=== PATIENT | male | born 1960 | race Two or more races ===

== ENCOUNTER 2016-09-08 12:01 | Inpatient (IN) | payer OTHER ==
[2016-09-08 13:02] VITALS: BMI 22.3
--- NOTE | 2016-09-08 16:22 | HP ---
COWS - Scale Resting Pulse: 1= [place] 81-100 Sweatin= Chills/Flushing Restless Observation: 1= Difficult to Sit Still Pupil Size: 1= Pupils >than Normal Bone or Joint Aches: 2= Severe Diffuse Aches Runny Nose/ Eye Tearin= Runny Nose/Eyes GI Upset > 30mins: 1= Stomach Cramp Tremor Observation: 1= Tremor [place], Not Seen Yawning Observation: 0= None Anxiety or Irritability: 2=Irritable/Anxious Goose Flesh Skin: 3=Piloerection COWS Score: 15 Admission ROS [facility] - [facility] Chief Complaint: withdrawal sx Allergies/Adverse Reactions: Allergies Allergy/AdvReac Type Severity Reaction Status Date / Time No Known Allergies Allergy Verified 09/08/16 14:59 History of Present Illness: 56 YEARS OLD MALE WITH LONG HISTORY OF OPIATE NICOTINE DEPENDENCE, DENIES MEDICAL ISSUE DENIES MENTAL ILLNESS, LONGEST SOBRIETY IS 1 YEAR, IS ADMITTED TO DETOX Exam Limitations: No Limitations - Ebola screening Have you traveled outside of the country in the last 21 days: No Have you had contact with anyone from an Ebola affected area: No Have you been sick,other than usual withdrawal symptoms: No Do you have a fever: No - Review of Systems Constitutional: Chills, Changes in sleep, Weight Stable EENT: reports: Dental Problems (UPPER TEETH MISSING - ABLE TO CHEW REGULAR FOOD) Respiratory: reports: SOB with Exertion Cardiac: reports: Chest Pain (CHRONIC CHEST PAIN - RELIEFED - "RELAXATION") GI: reports: Nausea, Poor Fluid Intake, Abdominal cramping : reports: No Symptoms Reported Musculoskeletal: reports: Back Pain Integumentary: reports: No Symptoms Reported Neuro: reports: Tremors Endocrine: reports: No Symptoms Reported Hematology: reports: No Symptoms Reported Psychiatric: reports: Judgement Intact, Mood/Affect Appropiate, Orientated x3 Other Systems: Reviewed and Negative Patient History - Patient Medical History Hx Anemia: No Hx Asthma: No Hx Chronic Obstructive Pulmonary Disease (COPD): Yes Hx Cancer: No Hx Cardiac Disorders: No Hx Congestive Heart Failure: No Hx Hypertension: No Hx Hypercholesterolemia: No Hx Pacemaker: No HX Cerebrovascular Accident: No Hx Seizures: Yes (1976 HEAD TRAUMA) Hx Dementia: No Hx Diabetes: No Hx Gastrointestinal Disorders: No Hx Liver Disease: No Hx Genitourinary Disorders: No Hx Sexually Transmitted Disorders: No Hx Renal Disease (ESRD): No Hx Thyroid Disease: No Hx Human Immunodeficiency Virus (HIV): No (negative ) Hx Hepatitis C: No Hx Depression: No Hx Suicide Attempt: No Hx Bipolar Disorder: No Hx Schizophrenia: No - Patient Surgical History Past Surgical History: Yes Hx Neurologic Surgery: No Hx Cataract Extraction: No Hx Cardiac Surgery: No Hx Lung Surgery: No Hx Breast Surgery: No Hx Breast Biopsy: No Hx Abdominal Surgery: Yes (UMBILICAL Herniorrhaphy 1977) Hx Appendectomy: No Hx Cholecystectomy: No Hx Genitourinary Surgery: No Hx Orthopedic Surgery: No Other Surgical History: Anesthesia Reaction: No - PPD History Previous Implant?: Yes Documented Results: Negative w/proof Implanted On Prior [facility] Admission?: Yes Date: 08/30/14 Results: 0 mm PPD to be Administered?: Yes - Smoking Cessation Smoking history: Current every day smoker Have you smoked in the past 12 months: Yes Aproximately how many cigarettes per day: 30 Cigars Per Day: 0 Hx Chewing Tobacco Use: No Initiated information on smoking cessation: Yes 'Breaking Loose' booklet given: 09/08/16 - Substance & Tx. History Hx Alcohol Use: No Hx Substance Use: Yes Substance Use Type: Heroin, Opiates Hx Substance Use Treatment: Yes - Substances Abused Heroin Route: Inhalation Frequency: Daily Amount used: 10-15 bags Age of first use: 26 Date of Last Use: 09/08/16 Street methadone Route: Oral Frequency: 1-2 times per week Amount used: 75 mg. Age of first use: 26 Date of Last Use: 09/06/16 Family Disease History - Family Disease History Family History: Denies Admission Physical Exam [facility] - Vital Signs Vital Signs: Vital Signs - 24 hr 09/08/16 12:59 Temperature 97.8 F Pulse Rate 82 Respiratory 18 Rate Blood Pressure 104/69 - Physical General Appearance: Yes: Appropriately Dressed, Mild Distress, Thin, Tremorous, Irritable, Sweating, Anxious HEENTM: Yes: Hearing grossly Normal, Normal ENT Inspection, Normocephalic, Normal Voice Respiratory: Yes: Chest Non-Tender, No Respiratory Distress, No Accessory Muscle Use, Hyperresonant, Inspiration Neck: Yes: Supple, Trachea in good position Breast: Yes: Breasts Symetrical Cardiology: Yes: Regular Rhythm, Regular Rate, S1, S2 Abdominal: Yes: Non Tender, Soft Genitourinary: Yes: Within Normal Limits Back: Yes: Normal Inspection Musculoskeletal: Yes: full range of Motion, Gait Steady, Back pain Extremities: Yes: Normal Inspection, Normal Range of Motion, Non-Tender, Tremors Neurological: Yes: Fully Oriented, Alert, Motor Strength 5/5, Normal Mood/Affect , Normal Response Integumentary: Yes: Normal Color, Warm, Clammy Lymphatic: Yes: Within Normal Limits - Diagnostic (1) Nicotine dependence Current Visit: Yes Status: Acute Qualifiers: Nicotine product type: cigarettes Substance use status: in withdrawal Qualified Code(s): F17.213 - Nicotine dependence, cigarettes, with withdrawal (2) Opioid dependence with withdrawal Current Visit: Yes Status: Acute (3) COPD (chronic obstructive pulmonary disease) Current Visit: Yes Status: Acute Qualifiers: COPD type: emphysema Emphysema type: unilateral Qualified Code(s ): J43.0 - Unilateral pulmonary emphysema [MacLeod's syndrome] Comment: VENTOLIN Cleared for Admission S - Detox or Rehab [facility] Level of Care: Medically Managed Detox Regimen/Protocol: Methadone [facility] Breath Alcohol Content Breath Alcohol Content: 0 Urine Drug Screen - Results Drug Screen Negative: No Urine Drug Screen Results: OPI-Opiates, MTD-Methadone
[2016-09-08] MEDS ORDERED: MENTHOL/PHENOL 1 EACH UD MM PRN (16:27)
[2016-09-08] MEDS ORDERED: NICOTINE POLACRILEX 2 MG GUM BC PRN (16:27)
[2016-09-08] MEDS ORDERED: guaiFENesin/D-METHORPHAN HB 10 ML UNIT-DOSE CUPS PO PRN (16:27)
[2016-09-08] MEDS ORDERED: diphenhydrAMINE HCL 50 MG CAPSULE PO PRN (16:27)
[2016-09-08] MEDS ORDERED: LOPERAMIDE HCL 2 MG CAPSULE PO PRN (16:27)
[2016-09-08] MEDS ORDERED: P-EPHED 60MG/TRIPROLIDI 2.5MG TABLET PO PRN (16:27)
[2016-09-08] MEDS ORDERED: ACETAMINOPHEN 325 MG TABLET (FP) PO PRN (16:27)
[2016-09-08] MEDS ORDERED: MAGNESIUM HYDROX 2400MG/30ML ORAL SUSPENSION 30 ML CUP PO PRN (16:27)
[2016-09-08] MEDS ORDERED: MAG HYDROX/AL HYDROX/SIMETH 30 ML UNIT-DOSE CUP PO PRN (16:27)
[2016-09-08] MEDS ORDERED: IBUPROFEN 400 MG TABLET (FP) PO PRN (16:27)
[2016-09-08] MEDS ORDERED: MAGNESIUM CITRATE 300 ML BOTTLE PO PRN (16:27)
[2016-09-08] MEDS ORDERED: ALBUTEROL SO4 6.7 GM HFA INHALER IH PRN (16:31)
[2016-09-08] MEDS ORDERED: METHADONE HCL 10 MG TABLET (FOR DETOX USE ONLY) PO ONE ×2 (17:15→23:00)
[2016-09-08] MEDS: diazePAM 5 MG TABLET PO PRN ×2 (17:23→22:42)
[2016-09-08] MEDS: THIAMINE HCL 100 MG TABLET (FP) PO SCH (22:42)
[2016-09-08 23:00] LABS: URINE APPEARANCE CLEAR; URINE BILIRUBIN NEGATIVE (NEGATIVE); URINE BLOOD NEGATIVE (NEGATIVE); URINE COLOR LTYELLOW; URINE GLUCOSE (UA) NEGATIVE (NEGATIVE); URINE KETONE NEGATIVE (NEGATIVE); URINE LEUK ESTERASE NEGATIVE (NEGATIVE); URINE NITRITE NEGATIVE (NEGATIVE); URINE PROTEIN NEGATIVE (NEGATIVE); URINE UROBILINOGEN NEGATIVE E.U./dl (0.2-1.0)
[2016-09-09] MEDS ORDERED: METHADONE HCL 10 MG TABLET (FOR DETOX USE ONLY) PO ONE (10:00)
[2016-09-09] MEDS: NICOTINE 21 MG/24 HOURS TOPICAL PATCH TD SCH (10:22)
[2016-09-09 10:23] LABS: MCH 27.8 pg (25.7-33.7); MCHC 32.1 g/dl (32.0-35.9); MEAN CELL VOLUME 86.6 fl (80-96); MEAN PLT VOLUME 8.8 fl (7.5-11.1); PLATELET COUNT 270 K/MM3 (134-434); RDW 14.1 % (11.9-15.9); WHITE BLOOD COUNT 9.4 K/mm3 (4.0-10.0)
[2016-09-09] MEDS: diazePAM 5 MG TABLET PO PRN ×2 (10:23→23:09)
[2016-09-09] MEDS: PRENATAL VITAMINS W/ FOLIC ACID TABLET (FP) PO SCH (10:23)
[2016-09-09 10:37] LABS: ALBUMIN 3.7 g/dl (3.4-5.0); ALK PHOS 69 U/L (45-117); ANION GAP 8 (8-16); BILIRUBIN,TOTAL 0.3 mg/dL (0.2-1.0); CALCIUM 8.7 mg/dL (8.5-10.1); CO2 27 mmol/L (21-32); GLUCOSE,RANDOM 94 mg/dL (74-106); SGOT/AST 10 U/L (15-37); SGPT/ALT 15 U/L (12-78); TOT PROT 6.7 g/dl (6.4-8.2)
--- NOTE | 2016-09-09 12:00 | PN ---
S COWS - Scale Resting Pulse: 0= [place] 80 or Below Sweatin=Flushed/Facial Moisture Restless Observation: 1= Difficult to Sit Still Pupil Size: 1= Pupils >than Normal Bone or Joint Aches: 2= Severe Diffuse Aches Runny Nose/ Eye Tearin= Nasal Congestion GI Upset > 30mins: 1= Stomach Cramp Tremor Observation of Outstretched Hands: 1= Tremor [place], Not Seen Yawning Observation: 0= None Anxiety or Irritability: 2=Irritable/Anxious Goose Flesh Skin: 0=Smooth Skin COWS Score: 11 S Progress Note (SOAP) Subjective: INTERRUPTED SLEEP, SWEATS , LBP Objective: 09/09/16 11:58 Vital Signs Temperature 99.7 F H 09/09/16 09:59 Pulse Rate 95 H 09/09/16 09:59 Respiratory Rate 16 09/09/16 09:59 Blood Pressure 129/69 09/09/16 09:59 O2 Sat by Pulse Oximetry (%) Laboratory Tests 09/08/16 09/09/16 09/09/16 22:00 06:20 06:20 WBC 9.4 RBC 4.90 Hgb 13.6 D Hct 42.4 MCV 86.6 MCHC 32.1 RDW 14.1 Plt Count 270 MPV 8.8 Sodium 139 Potassium 4.7 Chloride 104 Carbon Dioxide 27 Anion Gap 8 BUN 12 D Creatinine 1.0 D Creat Clearance w eGFR > 60 Random Glucose 94 Calcium 8.7 Total Bilirubin 0.3 D AST 10 L D ALT 15 D Alkaline Phosphatase 69 Total Protein 6.7 Albumin 3.7 Urine Color Ltyellow Urine Appearance Clear Urine pH 6.0 Ur Specific [place] 1.008 Urine Protein Negative Urine Glucose (UA) Negative Urine Ketones Negative Urine Blood Negative Urine Nitrite Negative Urine Bilirubin Negative Urine Urobilinogen Negative Ur Leukocyte Esterase Negative RPR Titer 09/09/16 06:20 WBC RBC Hgb Hct MCV MCHC RDW Plt Count MPV Sodium Potassium Chloride Carbon Dioxide Anion Gap BUN Creatinine Creat Clearance w eGFR Random Glucose Calcium Total Bilirubin AST ALT Alkaline Phosphatase Total Protein Albumin Urine Color Urine Appearance Urine pH Ur Specific [place] Urine Protein Urine Glucose (UA) Urine Ketones Urine Blood Urine Nitrite Urine Bilirubin Urine Urobilinogen Ur Leukocyte Esterase RPR Titer Nonreactive PT AOX3 IN NAD Assessment: 09/09/16 11:59 WITHDRAWL SX;S Plan: CONT. DETOX INCREASE FLUIDS LIDOCAINE PATCH
[2016-09-09] MEDS ORDERED: LIDOCAINE 5% TOPICAL PATCH TP ONE (12:01)
--- NOTE | 2016-09-09 16:12 | EKG ---
Test Reason : Blood Pressure : / mmHG Vent. Rate : 055 BPM Atrial Rate : 055 BPM P-R Int : 118 ms QRS Dur : 090 ms QT Int : 402 ms P-R-T Axes : 043 068 057 degrees QTc Int : 384 ms SINUS BRADYCARDIA OTHERWISE NORMAL ECG NO PREVIOUS ECGS AVAILABLE Confirmed by SIMNOE VILLELA MD ([id number]) on 09/09/2016 4:12:22 PM Referred By: Confirmed By:SIMONE VILLELA MD
[2016-09-09] MEDS: THIAMINE HCL 100 MG TABLET (FP) PO SCH (23:10)
[2016-09-10 09:49] VITALS: BP 117/57; PULSE 93; TEMP 97.7
[2016-09-10] MEDS ORDERED: METHADONE HCL 5 MG TABLET (FOR DETOX USE ONLY) PO ONE (10:00)
[2016-09-10] MEDS: PRENATAL VITAMINS W/ FOLIC ACID TABLET (FP) PO SCH (10:25)
[2016-09-10] MEDS: NICOTINE 21 MG/24 HOURS TOPICAL PATCH TD SCH (10:25)
[2016-09-10] MEDS: diazePAM 5 MG TABLET PO PRN (10:26)
[2016-09-10] MEDS: LIDOCAINE 5% TOPICAL PATCH TP SCH ×2 (10:28→11:45)
--- NOTE | 2016-09-10 11:47 | PN ---
S Progress Note Note: pt was advised not to sign out but pt mind was set to leave refused to explain his reasoning.
--- NOTE | 2016-09-10 11:49 | DS ---
[facility] Detox Discharge Summary Admission Date: 09/08/16 Discharge Date: 09/10/16 (did not want detox) - History Present History: Opioid Dependence - Physical Exam Results Vital Signs: Vital Signs Temperature 97.7 F 09/10/16 09:48 Pulse Rate 93 H 09/10/16 09:48 Respiratory Rate 18 09/10/16 09:48 Blood Pressure 117/57 09/10/16 09:48 O2 Sat by Pulse Oximetry (%) - Medication Discharge Medications: Ambulatory Orders NK [No Known Home Medication] 09/08/16 - Diagnosis (1) COPD (chronic obstructive pulmonary disease) Current Visit: Yes Status: Chronic Qualifiers: COPD type: emphysema Emphysema type: unilateral Qualified Code(s ): J43.0 - Unilateral pulmonary emphysema [MacLeod's syndrome] (2) Nicotine dependence Current Visit: Yes Status: Chronic Qualifiers: Nicotine product type: cigarettes Substance use status: uncomplicated Qualified Code(s): F17.210 - Nicotine dependence, cigarettes, uncomplicated (3) Opioid dependence with withdrawal Current Visit: Yes Status: Chronic (4) Substance induced mood disorder Current Visit: No Status: Acute (5) Substance-induced sleep disorder Current Visit: No Status: Acute - AMA Did Patient Leave Against Medical Advice: Yes (refused detox)
[2016-09-11] MEDS ORDERED: METHADONE HCL 5 MG TABLET (FOR DETOX USE ONLY) PO ONE (10:00)
[2016-09-12] MEDS ORDERED: METHADONE HCL 10 MG TABLET (FOR DETOX USE ONLY) PO ONE (10:00)
[2016-09-13] MEDS ORDERED: METHADONE HCL 5 MG TABLET (FOR DETOX USE ONLY) PO ONE (06:00)
== END 2016-09-10 11:54 | disposition left against medical advice (07) | DRG 770 ==
LOC: YASAS 12:01 → Y6N 15:39
PROVIDERS: ADMIT Internal Medicine Addiction Medicine; ATTEND Internal Medicine Addiction Medicine
PROC: HZ2ZZZZ Detoxification Services for Substance Abuse Treatment (ICD-10-PCS; principal; 2016-09-08)
DX: F11.23 Opioid dependence with withdrawal (principal); F17.210 Nicotine dependence, cigarettes, uncomplicated; F19.24 Other psychoactive substance dependence with psychoactive substance-induced mood disorder; F19.282 Other psychoactive substance dependence with psychoactive substance-induced sleep disorder; J45.30 Mild persistent asthma, uncomplicated; Z86.69 Personal history of other diseases of the nervous system and sense organs
CPT/HCPCS: 36415; 80053; 81003; 85027; 86593; 93005; 93010